=== PATIENT | female | born 1980 | race Caucasian/White ===

== ENCOUNTER → 2016-12-09 | Outpatient (CLI) | payer OTHER ==
[~2016-12-09] MED LIST: ALBUTEROL SULF0.5 M1 INH; ANUSOL-HC25 MG RC; CELEXA20 MG PO; CLARITIN10 MG PO; CYCLOBENZAPRINE10 MG PO; DELTASONE10 MG PO; DIFLUCAN150 MG PO; EES400 MG PO; FIORICET 325 MG1 TAB PO; FLEXERIL10 MG PO; FLEXERIL5 MG PO; FLUCONAZOLE100 MG PO; HYDROCODON-ACE1 EACH PO; HYDROCODON-ACETAMINO; HYDROCODONE BIT1 T11 PO; LEVOFLOXACIN500 MG PO; MEDROL DOSEPAK4 MG PO; MOTRIN800 MG PO; MUCINEX DM 30/61 TAB PO; NAPROXEN250 MG PO; NAPROXEN550 MG PO; NO DAILY MEDS; PANTOPRAZOLE SO40 MG PO; PREDNICOT20 MG PO; PREDNISONE10 MG PO; PREDNISONE20 MG PO; PRILOSEC20 MG PO; ROBAXIN750 MG PO; ROBITUSSIN DM 101 OZ PO; TESSALON PERLE100 M1 PO; TRAMADOL HCL50 MG PO; TRIMOX500 MG PO; ULTRAM50 MG PO; VIBRAMYCIN100 MG PO; VICODIN 5/500 505 MG PO; VICODIN ES 7501 TA1 PO; VOLTAREN50 M1 PO; WELLBUTRIN SR150 MG PO; XARELTO15 M1 PO; ZITHROMAX Z PA250 MG PO; ZITHROMAX250 MG PO; ZOFRAN ODT4 MG SL; ZYRTEC10 M1 PO
== END | disposition home or self-care (01) ==
LOC: ORTHO 04:51
DX: S52.602A Unspecified fracture of lower end of left ulna, initial encounter for closed fracture (principal); X58.XXXA Exposure to other specified factors, initial encounter; Y93.89 Activity, other specified; Y92.89 Other specified places as the place of occurrence of the external cause; Y99.8 Other external cause status

== ENCOUNTER → 2016-12-10 | Outpatient (CLI) | payer OTHER | END | disposition home or self-care (01) | LOC: MRI 12-03 10:00 | DX: S06.0X1A Concussion with loss of consciousness of 30 minutes or less, initial encounter (principal); X58.XXXA Exposure to other specified factors, initial encounter; Y93.89 Activity, other specified; Y92.89 Other specified places as the place of occurrence of the external cause; Y99.8 Other external cause status ==

== ENCOUNTER → 2016-12-23 | Outpatient (CLI) | payer OTHER | END | disposition home or self-care (01) | LOC: ORTHO 01:53 | DX: S52.602D Unspecified fracture of lower end of left ulna, subsequent encounter for closed fracture with routine healing (principal); X58.XXXD Exposure to other specified factors, subsequent encounter ==

== ENCOUNTER → 2017-01-13 | Outpatient (CLI) | payer OTHER | END | disposition home or self-care (01) | LOC: CANPRECLI → ORTHO 00:16 | DX: S52.602D Unspecified fracture of lower end of left ulna, subsequent encounter for closed fracture with routine healing (principal); X58.XXXD Exposure to other specified factors, subsequent encounter ==

== ENCOUNTER → 2017-01-24 | Outpatient (CLI) | payer OTHER | END | disposition home or self-care (01) | LOC: ORTHO 03:49 | DX: S52.602A Unspecified fracture of lower end of left ulna, initial encounter for closed fracture (principal); X58.XXXA Exposure to other specified factors, initial encounter; Y93.89 Activity, other specified; Y92.89 Other specified places as the place of occurrence of the external cause; Y99.8 Other external cause status ==

== ENCOUNTER → 2017-02-17 | Outpatient (CLI) | payer OTHER | END | disposition home or self-care (01) | LOC: ORTHO 01:58 | DX: S52.602D Unspecified fracture of lower end of left ulna, subsequent encounter for closed fracture with routine healing (principal); X58.XXXD Exposure to other specified factors, subsequent encounter ==

== ENCOUNTER 2017-06-06 16:02 | Emergency (ER) | payer OTHER ==
[~2017-06-06] VITALS: Ht 177.8 cm; Wt 108.9 kg
[2017-06-06 23:11] LABS: BASO # 0.1 10*3/uL (0.0-0.1); BASO % 0.7 % (0.0-1.0); EOS # 0.2 10*3/uL (0.0-0.4); EOS % 1.7 % (1.0-4.0); HEMATOCRIT 38.2 % (37.0-47.0); LYMPH # 3.6 10*3/uL (1.3-4.4); LYMPH % 29.2 % (27.0-41.0); MEAN CELL VOLUME 91.8 fl (81.0-99.0); MEAN CORPUSCULAR HGB 31.3 pg (27.0-31.0); MEAN PLATELET VOLUME 10.4 fl (9.6-12.3); MONO # 0.9 10*3/uL (0.1-1.0); MONO % 7.7 % (3.0-9.0); NEUT # 7.3 10*3/uL (2.3-7.9); NEUT % 60.4 % (47.0-73.0); PLATELET COUNT AUTOMATED 269 10*3/uL (130-400); RED BLOOD COUNT 4.16 10*6/uL (4.10-5.10); RED CELL DISTRI WIDTH 12.8 % (0-14.5); WHITE BLOOD COUNT 12.2 10*3/uL (4.8-10.8)
[2017-06-06 23:26] LABS: ALBUMIN 3.3 gm/dl (3.1-4.5); ALKALINE PHOSPHATASE 91 U/L (45-117); BUN 15 mg/dl (7-24); CHLORIDE 109 mmol/L (98-107); CREATININE 0.88 mg/dL (0.55-1.02); POTASSIUM 3.4 mmol/L (3.5-5.1); SGOT/AST 19 IU/L (3-35); SGPT/ALT 28 U/L (12-78); SODIUM 142 mmol/L (136-145); TOTAL PROTEIN 6.8 gm/dL (6.4-8.2)
[2017-06-07 01:03] VITALS: BP 125/67
[2017-06-07] MEDS ORDERED: ZITHROMAX250 MG PO (01:08)
[2017-06-07] MEDS ORDERED: MEDROL DOSEPAK4 MG PO (01:08)
[2017-06-07 01:26] LABS: BILIRUBIN NEGATIVE (NEGATIVE); BLOOD NEGATIVE (NEGATIVE); CLARITY SL CLOUDY (CLEAR); COLOR YELLOW (YELLOW); GLUCOSE NEGATIVE (NEGATIVE); KETONE NEGATIVE (NEGATIVE); LEUKO ESTERASE NEGATIVE (NEGATIVE); NITRITE NEGATIVE (NEGATIVE); PH 5.5 (5.0-9.0); SPECIFIC GRAVITY >= 1.030 (1.005-1.030); UROBILINOGEN 0.2 E.U./dl (0.2-1.0)
[2017-06-07 01:36] LABS: URINE AMPHETAMINES < 1000 (1000ng/ml); URINE BARBITURATES < 200 (200ng/ml); URINE BENZODIAZEPINES < 200 (200ng/ml); URINE CANNABINOIDS (THC) < 50 (50ng/ml); URINE COCAINE < 300 (300ng/ml); URINE METHADONE < 300 (300ng/ml); URINE OPIATES > 300 (300ng/ml)
[2017-06-07 01:37] LABS: URINE PHENCYCLIDINE < 25 (25ng/ml)
[2017-06-07 01:39] LABS: EPITHELIAL CELLS 45-50
[2017-06-07 01:40] LABS: BACTERIA 1+; WBC 0-2 wbc/hpf (0-5)
[2017-06-08] MEDS ORDERED: ALBUTEROL2.5 MG/0.5 INH (20:38)
[2017-06-08] MEDS ORDERED: TESSALON PERLE100 M1 PO ×2 (20:38→20:40)
== END 2017-06-07 02:04 | disposition home or self-care (01) ==
LOC: ED 16:02
PROVIDERS: Nurse Practitioner Family
DX: J06.9 Acute upper respiratory infection, unspecified (principal); F17.200 Nicotine dependence, unspecified, uncomplicated; E66.9 Obesity, unspecified; G89.29 Other chronic pain; M54.5 Low back pain; Z90.49 Acquired absence of other specified parts of digestive tract; Z86.718 Personal history of other venous thrombosis and embolism; Z68.39 Body mass index [BMI] 39.0-39.9, adult; Z98.890 Other specified postprocedural states; Z79.899 Other long term (current) drug therapy

== ENCOUNTER 2017-06-08 17:02 | Emergency (ER) | payer OTHER ==
[~2017-06-08] VITALS: Ht 177.8 cm
[2017-06-08 18:43] VITALS: BP 130/63
[2017-06-08 19:19] LABS: BASO # 0.1 10*3/uL (0.0-0.1); BASO % 0.6 % (0.0-1.0); EOS # 0.1 10*3/uL (0.0-0.4); EOS % 0.9 % (1.0-4.0); HEMOGLOBIN 13.4 g/dl (12.0-16.0); LYMPH % 33.9 % (27.0-41.0); MEAN CELL VOLUME 92.4 fl (81.0-99.0); MEAN CORPUSCULAR HGB 31.8 pg (27.0-31.0); MEAN CORPUSCULAR HGB CONC 34.4 g/dl (33.0-37.0); MEAN PLATELET VOLUME 10.6 fl (9.6-12.3); MONO # 1.4 10*3/uL (0.1-1.0); MONO % 16.2 % (3.0-9.0); NEUT # 4.2 10*3/uL (2.3-7.9); NEUT % 48.2 % (47.0-73.0); PLATELET COUNT AUTOMATED 249 10*3/uL (130-400); RED BLOOD COUNT 4.22 10*6/uL (4.10-5.10); RED CELL DISTRI WIDTH 12.7 % (0-14.5); WHITE BLOOD COUNT 8.7 10*3/uL (4.8-10.8)
[2017-06-08 19:35] LABS: ALBUMIN 3.2 gm/dl (3.1-4.5); ALKALINE PHOSPHATASE 90 U/L (45-117); BUN 11 mg/dl (7-24); CHLORIDE 109 mmol/L (98-107); CREATININE 0.79 mg/dL (0.55-1.02); POTASSIUM 4.2 mmol/L (3.5-5.1); SGOT/AST 16 IU/L (3-35); SGPT/ALT 26 U/L (12-78); SODIUM 142 mmol/L (136-145); TOTAL PROTEIN 6.6 gm/dL (6.4-8.2)
[2017-06-08] MEDS ORDERED: ALBUTEROL2.5 MG/0.5 INH (20:38)
[2017-06-08] MEDS ORDERED: TESSALON PERLE100 M1 PO ×2 (20:38→20:40)
== END 2017-06-08 20:49 | disposition home or self-care (01) ==
LOC: ED 17:02
PROVIDERS: Physician Assistant
DX: J18.0 Bronchopneumonia, unspecified organism (principal)

== ENCOUNTER 2018-10-07 14:09 | Emergency (ER) | payer OTHER ==
[~2018-10-07] VITALS: Ht 170.1 cm; Wt 102.1 kg
--- NOTE | ~2018-10-07 | EKG ---
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
[~2018-10-07 14:09] MED LIST changes: +ALBUTEROL2.5 MG/0.5 INH
[2018-10-07 14:36] VITALS: BP 105/50
[2018-10-07 15:11] LABS: BASO # 0.1 10*3/uL (0.0-0.1); EOS # 0.2 10*3/uL (0.0-0.4); EOS % 1.6 % (1.0-4.0); HEMATOCRIT 40.5 % (37.0-47.0); HEMOGLOBIN 13.3 g/dl (12.0-16.0); LYMPH # 3.5 10*3/uL (1.3-4.4); LYMPH % 37.8 % (27.0-41.0); MEAN CELL VOLUME 94.4 fl (81.0-99.0); MEAN CORPUSCULAR HGB CONC 32.8 g/dl (33.0-37.0); MEAN PLATELET VOLUME 10.4 fl (9.6-12.3); MONO # 0.8 10*3/uL (0.1-1.0); NEUT # 4.7 10*3/uL (2.3-7.9); NEUT % 50.4 % (47.0-73.0); PLATELET COUNT AUTOMATED 253 10*3/uL (130-400); RED BLOOD COUNT 4.29 10*6/uL (4.10-5.10); RED CELL DISTRI WIDTH 12.8 % (0-14.5); WHITE BLOOD COUNT 9.3 10*3/uL (4.8-10.8)
[2018-10-07 15:19] LABS: INTERNATIONAL NORM RATIO 0.9 (2.0-3.5)
[2018-10-07 15:29] LABS: ALBUMIN 3.5 gm/dl (3.1-4.5); ALKALINE PHOSPHATASE 79 U/L (45-117); BUN 16 mg/dl (7-24); CHLORIDE 108 mmol/L (98-107); CREATININE 0.87 mg/dL (0.55-1.02); POTASSIUM 3.7 mmol/L (3.5-5.1); SGOT/AST 16 IU/L (3-35); SGPT/ALT 26 U/L (12-78); SODIUM 141 mmol/L (136-145); TOTAL PROTEIN 6.6 gm/dL (6.4-8.2)
[2018-10-07 15:35] LABS: TROPONIN I < 0.015 ng/ml (<0.045)
[2018-10-07] MEDS ORDERED: HYDROXYZINE HCL25 MG PO (17:12)
== END 2018-10-07 17:21 | disposition home or self-care (01) ==
LOC: ED 14:09
PROVIDERS: Physician Assistant
DX: F41.9 Anxiety disorder, unspecified (principal); R07.9 Chest pain, unspecified; M79.89 Other specified soft tissue disorders; I50.9 Heart failure, unspecified

== ENCOUNTER 2020-01-26 12:33 | Inpatient (IN) | payer SELFPAY ==
[~2020-01-26] VITALS: Ht 177.8 cm; Wt 129.3 kg
[~2020-01-26 12:33] MED LIST changes: +HYDROXYZINE HCL25 MG PO
[2020-01-26 12:47] VITALS: BP 124/48
[2020-01-26 13:34] LABS: BASO # 0.1 10*3/uL (0.0-0.1); BASO % 0.9 % (0.0-1.0); EOS # 0.1 10*3/uL (0.0-0.4); HEMATOCRIT 43.6 % (37.0-47.0); LYMPH # 3.2 10*3/uL (1.3-4.4); LYMPH % 32.4 % (27.0-41.0); MEAN CELL VOLUME 90.1 fl (81.0-99.0); MEAN CORPUSCULAR HGB 31.2 pg (27.0-31.0); MEAN CORPUSCULAR HGB CONC 34.6 g/dl (33.0-37.0); MEAN PLATELET VOLUME 10.4 fl (9.6-12.3); MONO # 0.9 10*3/uL (0.1-1.0); MONO % 9.6 % (3.0-9.0); NEUT # 5.5 10*3/uL (2.3-7.9); NEUT % 55.9 % (47.0-73.0); PLATELET COUNT AUTOMATED 327 10*3/uL (130-400); RED BLOOD COUNT 4.84 10*6/uL (4.10-5.10); RED CELL DISTRI WIDTH 12.5 % (0-14.5); WHITE BLOOD COUNT 9.8 10*3/uL (4.8-10.8)
[2020-01-26 13:45] LABS: ACT PARTIAL THROMBO TIME 27.1 SECONDS (20.0-32.1)
[2020-01-26 13:55] LABS: ALBUMIN 3.7 gm/dl (3.1-4.5); ALKALINE PHOSPHATASE 72 U/L (45-117); BUN 13 mg/dl (7-24); CHLORIDE 107 mmol/L (98-107); LIPASE 92 U/L (73-393); POTASSIUM 3.8 mmol/L (3.5-5.1); SGOT/AST 21 IU/L (3-35); SGPT/ALT 32 U/L (12-78); SODIUM 138 mmol/L (136-145); TOTAL PROTEIN 7.2 gm/dL (6.4-8.2)
[2020-01-26 13:59] LABS: TROPONIN I < 0.015 ng/ml (<0.045)
[2020-01-26 14:56] LABS: BILIRUBIN NEGATIVE (NEGATIVE); BLOOD NEGATIVE (NEGATIVE); CLARITY CLEAR (CLEAR); COLOR YELLOW (YELLOW); GLUCOSE NEGATIVE (NEGATIVE); KETONE NEGATIVE (NEGATIVE); LEUKO ESTERASE NEGATIVE (NEGATIVE); NITRITE NEGATIVE (NEGATIVE); UROBILINOGEN 0.2 E.U./dl (0.2-1.0)
[2020-01-26 14:58] LABS: BACTERIA 2+; MUCOUS 2+; RBC 0-2 rbc/hpf (0-2)
--- NOTE | 2020-01-26 16:42 | NUR ---
PT RESTING ON BED COMFORTABLY. STATES MEDICATION WAS EFFECTIVE.
--- NOTE | 2020-01-26 17:31 | NUR ---
PT CALLED. VERBAL PERMISSION GIVEN TO GIVE INFORMATION. UPDATE GIVEN.
[2020-01-26 18:50] VITALS: BP 111/60
--- NOTE | 2020-01-26 18:50 | NUR ---
Time: 1849 A 39 year old FEMALE admitted to 4E under services of ONDINA SMYTH DO. Pt. arrived via stretcher from ER. Chief complaint: ABDOMINAL PAIN. FANTASMA JANSEN
--- NOTE | 2020-01-26 19:00 | NUR ---
ASSUMED CARE FOR THIS PT AT THIS TIME. C/O MID EPIGASTRIC PAIN 12/23 BUT DENIES NEED FOR PAIN MED AT THIS TIME. PT TEACHING GIVEN ON PROTONIX. ICE CHIPS GIVEN TO PT. CALL LIGHT IN REACH.
--- NOTE | 2020-01-26 19:30 | NUR ---
DR. SEAY NOTIFIED OF PT'S NPO STATUS AND PO PROTONIX ORDERED. OK TO CHANGE TO IV FORM.
--- NOTE | 2020-01-26 19:38 | NUR ---
DR. HENRY AWARE OF CONSULT
[2020-01-26 20:00] VITALS: BP 110/61
--- NOTE | 2020-01-26 22:28 | NUR ---
DR. SEAY PHONED RE PT STATES SHE DOES NOT LIKE THE WAY MORPHINE MAKES HER FEEL AND SHE WAS GIVEN DILAUDID IN THE ER. TO REVIEW HER CHART.
--- NOTE | 2020-01-26 23:02 | NUR ---
24 HR chart check completed.
--- NOTE | 2020-01-26 23:56 | NUR ---
PT MEDICATED W/MORPHINE IVP FOR C/O MID EPIGASTRIC PAIN 12/23. PT C/O CHEST TIGHTNESS. PT ANXIOUS RE NEW IV START D/T PREVIOUS IV INFILTRATED. PT STATES NEW IV IS BURNING WHEN FLUSHED. NO REDNESS OR SWELLING NOTED. WILL CONTINUE TO MONITOR.
[2020-01-27] VITALS: BP 102/56
--- NOTE | 2020-01-27 01:00 | NUR ---
PT RESTING QUIETLY IN BED. NO S/S OF DISTRESS NOTED. PRN MORPHINE EFFECTIVE FOR PAIN RELIEF.
[2020-01-27 06:13] LABS: BASO # 0.1 10*3/uL (0.0-0.1); BASO % 0.7 % (0.0-1.0); EOS # 0.1 10*3/uL (0.0-0.4); EOS % 1.3 % (1.0-4.0); HEMATOCRIT 38.9 % (37.0-47.0); LYMPH # 3.9 10*3/uL (1.3-4.4); LYMPH % 46.9 % (27.0-41.0); MEAN CELL VOLUME 92.2 fl (81.0-99.0); MEAN CORPUSCULAR HGB 31.5 pg (27.0-31.0); MEAN CORPUSCULAR HGB CONC 34.2 g/dl (33.0-37.0); MEAN PLATELET VOLUME 10.7 fl (9.6-12.3); MONO # 0.9 10*3/uL (0.1-1.0); MONO % 11.3 % (3.0-9.0); NEUT # 3.3 10*3/uL (2.3-7.9); NEUT % 39.4 % (47.0-73.0); PLATELET COUNT AUTOMATED 290 10*3/uL (130-400); RED BLOOD COUNT 4.22 10*6/uL (4.10-5.10); RED CELL DISTRI WIDTH 12.6 % (0-14.5); WHITE BLOOD COUNT 8.3 10*3/uL (4.8-10.8)
[2020-01-27 06:45] LABS: ALBUMIN 3.1 gm/dl (3.1-4.5); BUN 12 mg/dl (7-24); CHLORIDE 108 mmol/L (98-107); CHOLESTEROL 181 mg/dL (<200); CREATININE 0.77 mg/dL (0.55-1.02); POTASSIUM 3.8 mmol/L (3.5-5.1); SGOT/AST 16 IU/L (3-35); SGPT/ALT 26 U/L (12-78); SODIUM 140 mmol/L (136-145)
[2020-01-27 06:52] LABS: ALKALINE PHOSPHATASE 60 U/L (45-117); FREE T4 1.02 ng/dl (0.76-1.46); HDL CHOLESTEROL 34 mg/dl (40-60); LDL CHOLESTEROL 120 mg/dL (9-159); TRIGLYCERIDES 134 mg/dl (<150); VLDL CHOLESTEROL 27 mg/dL (6-40)
[2020-01-27 08:00] VITALS: BP 128/58
[2020-01-27 08:01] LABS: VITAMIN D, 25-HYDROXY 35.2 ng/mL (30-100)
--- NOTE | 2020-01-27 08:12 | NUR ---
PT GIVEN MORPHINE AT THIS TIME VIA IV PUSH FOR C/O PAIN TO ABDOMEN/MID EPIGASTRIC PAIN. PT DESCRIBES PAIN SHARP. WILL MONITOR FOR EFFECTIVENESS. PT LYING IN BED. IV FLUIDS INFUSING PER ORDERS. CALL LIGHT IN REACH.
--- NOTE | 2020-01-27 09:00 | NUR ---
NOTIFIED PT THAT DIET ORDER HAS BEEN CHANGED FROM NPO TO REGULAR. WATER PROVIDED TO PATIENT AT THIS TIME.
--- NOTE | 2020-01-27 09:12 | NUR ---
PT STATES THAT MORPHINE IS EFFECTIVE.
--- NOTE | 2020-01-27 11:11 | NUR ---
[employer] Administrator in to talk to patient. Patient states lives at HOME with . There are 10 steps in the home. 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 DENIES SHE WILL HAVE NEEDS ON DISCHARGE. PLAN IS TO RETURN HOME WITH WHEN MEDICALLY STABLE. PT STATES SHE HAS NOT INSURANCE AT THIS TIME. STATES SHE TALKED TO CARMELA FROM [facility] YESTERDAY. WILL CONTINUE TO FOLLOW. STATES HER WILL TAKE HER HOME ON DISCHARGE.. SHOSHANA BROTHERS
[2020-01-27 12:00] VITALS: BP 129/49
--- NOTE | 2020-01-27 13:00 | NUR ---
PT GIVEN MORPHINE AT THIS TIME FOR C/O ABDOMINAL PAIN. PT IV SITE TO RIGHT ANTECUBITAL PATENT. DRESSING C/D/I. WILL MONITOR FOR EFFECTIVENESS. CALL LIGHT IN REACH.
[2020-01-27 13:30] VITALS: BP 137/89
--- NOTE | 2020-01-27 14:00 | NUR ---
MORPHINE EFFECTIVE PER PT.
[2020-01-27 16:00] VITALS: BP 107/58
--- NOTE | 2020-01-27 16:00 | NUR ---
PT UPDATED ON PLAN OF CARE AND PLANS FOR THE DOCTORS TO KEEP HER ANOTHER NIGHT.
--- NOTE | 2020-01-27 18:00 | NUR ---
Hep Lock discontinued to right antecubital due to site dislodging. Site asymptomatic. Pressure applied. Sterile dressing applied. JOHN GOTTI
--- NOTE | 2020-01-27 18:10 | NUR ---
IV started right hand with #22 protective cath after 0 attempts. Site prepped with Chloroprep. Sterile dressing applied. Patient tolerated procedure well. IV site saline locked at this time. JOHN GOTTI
--- NOTE | 2020-01-27 18:12 | NUR ---
pt given morphine 2 mg at this time due to abdominal pain. will monitor for effectiveness. call light in reach.
--- NOTE | 2020-01-27 18:55 | NUR ---
PT STATES THAT MORPHINE IS EFFECTIVE AT THIS TIME.
--- NOTE | 2020-01-27 19:00 | NUR ---
ASSUMED CARE FOR THIS PT AT THIS TIME. PT SITTING UP IN BED EATNG POPSICLES. PT TEACHING GIVEN ON FOODS TO AVOID W/GASTRITIS. PT ENCOURAGED TO DRINK MILK AND COLD DRINKS/FOODS. BS HYPO X4. PT STATES SHE NO LONGER HAS PAIN, SHE HAS MID EPIGASTRIC BURNING 2/10. CALL LIGHT IN REACH.
[2020-01-27 20:00] VITALS: BP 109/62
[2020-01-28] VITALS: BP 113/47
--- NOTE | 2020-01-28 00:14 | NUR ---
PT MEDICATED W/MORPHINE IVP FOR C/O MID EPIGASTRIC BURNING. 02/22
--- NOTE | 2020-01-28 01:00 | NUR ---
PT RESTING QUIETLY IN BED. NO S/S OF DISTRESS NOTED.
[2020-01-28 06:01] LABS: BASO # 0.1 10*3/uL (0.0-0.1); BASO % 1.3 % (0.0-1.0); EOS # 0.1 10*3/uL (0.0-0.4); EOS % 1.6 % (1.0-4.0); LYMPH # 4.4 10*3/uL (1.3-4.4); LYMPH % 52.9 % (27.0-41.0); MEAN CELL VOLUME 91.1 fl (81.0-99.0); MEAN CORPUSCULAR HGB 30.5 pg (27.0-31.0); MEAN CORPUSCULAR HGB CONC 33.4 g/dl (33.0-37.0); MEAN PLATELET VOLUME 11.2 fl (9.6-12.3); MONO % 12.2 % (3.0-9.0); NEUT # 2.7 10*3/uL (2.3-7.9); NEUT % 31.9 % (47.0-73.0); PLATELET COUNT AUTOMATED 294 10*3/uL (130-400); RED BLOOD COUNT 4.17 10*6/uL (4.10-5.10); RED CELL DISTRI WIDTH 12.6 % (0-14.5); WHITE BLOOD COUNT 8.4 10*3/uL (4.8-10.8)
[2020-01-28 06:07] LABS: ALKALINE PHOSPHATASE 72 U/L (45-117); BUN 16 mg/dl (7-24); CHLORIDE 110 mmol/L (98-107); POTASSIUM 4.3 mmol/L (3.5-5.1); SGOT/AST 19 IU/L (3-35); SGPT/ALT 25 U/L (12-78); SODIUM 140 mmol/L (136-145); TOTAL PROTEIN 5.7 gm/dL (6.4-8.2)
--- NOTE | 2020-01-28 07:30 | NUR ---
PT SITTING UP IN BED, ALERT ORIENTED AND PLEASANT MOOD WITH NO COMPLAINTS VOICED AT THIS TIME. RESPIRATIONS EASY AND UNLABORED ON ROOM AIR. PT ASSESSMENT COMPLETE. VITALS WNL. SAFETY MEASURES IN PLACE. CALL LIGHT IN REACH.
[2020-01-28 08:00] VITALS: BP 122/68
--- NOTE | 2020-01-28 09:59 | NUR ---
PT STATES THAT SHE HAD ONE EPISODE OF EMESIS AFTER EATING BREAKFAST. ZOFRAN VIA IVP GIVEN AT THIS TIME. WILL MONITOR FOR EFFECTIVENESS. CALL LIGHT IN REACH.
--- NOTE | 2020-01-28 10:59 | NUR ---
ZOFRAN EFFECTIVE PER PT.
--- NOTE | 2020-01-28 11:59 | NUR ---
Nutritional Support Services Note: Appetite is good for meals. She is eating 100% of regular diet. Ht.5' Wt.285#. Dx of gastritis.No nausea or vomiting noted. Will follow if needed. No nutiriton intervention needed at this time. Will follow. Ro Francis Rdn Ld
[2020-01-28 12:00] VITALS: BP 101/47
[2020-01-28] MEDS ORDERED: PROTONIX40 MG PO (13:09)
[2020-01-28] MEDS ORDERED: Carafate1 GM PO (13:09)
--- NOTE | 2020-01-28 14:15 | NUR ---
Discharge instructions reviewed with patient/family. Patient receptive and verbalizes understanding. Follow-up care arranged. Written instructions given to patient/family. JOHN GOTTI
== END 2020-01-28 14:15 | disposition home or self-care (01) | DRG 392 ==
LOC: ED 12:33 → EDHOLD 17:33 → 4E 17:33
PROVIDERS: Emergency Medicine; Internal Medicine; Nurse Practitioner Family; ADMIT Family Medicine
DX: K29.00 Acute gastritis without bleeding (principal); Z68.41 Body mass index [BMI] 40.0-44.9, adult; E83.41 Hypermagnesemia; F17.210 Nicotine dependence, cigarettes, uncomplicated; M54.9 Dorsalgia, unspecified; F41.9 Anxiety disorder, unspecified; E66.9 Obesity, unspecified; G89.29 Other chronic pain; R00.0 Tachycardia, unspecified; Z71.6 Tobacco abuse counseling; Z86.718 Personal history of other venous thrombosis and embolism; Z80.1 Family history of malignant neoplasm of trachea, bronchus and lung; Z79.899 Other long term (current) drug therapy

== ENCOUNTER → 2020-02-09 | Outpatient (CLI) | payer SELFPAY ==
[~2020-02-09] MED LIST changes: +Carafate1 GM PO; +PROTONIX40 MG PO
== END | disposition home or self-care (01) ==
LOC: NM 06:36
DX: K29.00 Acute gastritis without bleeding (principal); R10.84 Generalized abdominal pain

== ENCOUNTER 2022-05-03 04:41 | Emergency (ER) | payer OTHER ==
[~2022-05-03] VITALS: Ht 172.7 cm; Wt 90.7 kg
[2022-05-03 05:03] VITALS: BP 112/62
[2022-05-03 05:56] LABS: ALKALINE PHOSPHATASE 82 U/L (45-117); BUN 12 mg/dl (7-24); CHLORIDE 105 mmol/L (98-107); CREATININE 0.84 mg/dL (0.55-1.02); POTASSIUM 3.8 mmol/L (3.5-5.1); SGOT/AST 21 IU/L (3-35); SGPT/ALT 31 U/L (12-78); SODIUM 138 mmol/L (136-145); TOTAL PROTEIN 6.9 gm/dL (6.4-8.2)
[2022-05-03 06:07] LABS: BASO % 0.5 % (0.0-1.0); HEMATOCRIT 41.2 % (37.0-47.0); LYMPH # 1.5 10*3/uL (1.3-4.4); LYMPH % 24.3 % (27.0-41.0); MEAN CELL VOLUME 90.2 fl (81.0-99.0); MEAN CORPUSCULAR HGB 30.6 pg (27.0-31.0); MONO # 0.9 10*3/uL (0.1-1.0); MONO % 14.3 % (3.0-9.0); NEUT # 3.8 10*3/uL (2.3-7.9); NEUT % 59.9 % (47.0-73.0); PLATELET COUNT AUTOMATED 224 10*3/uL (130-400); RED BLOOD COUNT 4.57 10*6/uL (4.10-5.10); RED CELL DISTRI WIDTH 12.8 % (0-14.5); WHITE BLOOD COUNT 6.3 10*3/uL (4.8-10.8)
== END 2022-05-03 07:35 | disposition home or self-care (01) ==
LOC: ED 04:41
PROVIDERS: Emergency Medicine
DX: U07.1 COVID-19 (principal); R11.2 Nausea with vomiting, unspecified; R00.0 Tachycardia, unspecified; F17.200 Nicotine dependence, unspecified, uncomplicated; Z79.899 Other long term (current) drug therapy; Z90.49 Acquired absence of other specified parts of digestive tract; Z98.890 Other specified postprocedural states; Z87.42 Personal history of other diseases of the female genital tract

== ENCOUNTER → 2022-05-14 | Outpatient (CLI) | payer OTHER | END | disposition home or self-care (01) | LOC: CARD 14:42 | PROVIDERS: ATTEND Physician Assistant | DX: I07.1 Rheumatic tricuspid insufficiency (principal) ==

== ENCOUNTER → 2023-08-21 | Outpatient (CLI) | payer OTHER | END | disposition home or self-care (01) | LOC: US 07:54 | PROVIDERS: ATTEND Physician Assistant | DX: K76.0 Fatty (change of) liver, not elsewhere classified (principal) ==

== ENCOUNTER 2024-01-13 09:26 | Emergency (ER) | payer OTHER ==
[~2024-01-13] VITALS: Ht 175.2 cm; Wt 117.9 kg
[2024-01-13 09:36] VITALS: BP 121/63
[2024-01-13] MEDS ORDERED: FUROSEMIDE40 MG PO (09:37)
[2024-01-13] MEDS ORDERED: HYDROCODONE-AC1 EAC1 PO (09:38)
[2024-01-13] MEDS ORDERED: PREGABALIN75 MG PO (09:38)
[2024-01-13] MEDS ORDERED: MIRTAZAPINE15 M2 PO (09:38)
[2024-01-13] MEDS ORDERED: HYDROXYZINE PAM25 M1 PO (09:38)
[2024-01-13] MEDS ORDERED: DEXTROAMPH SACC20 M1 PO (09:39)
[2024-01-13] MEDS ORDERED: POTASSIUM CHLO20 ME4 PO (09:39)
[2024-01-13] MEDS ORDERED: SODIUM CHLORIDE 0.9% 1,000 ML IV ONE (09:50)
[2024-01-13] MEDS ORDERED: Ondansetron Hydrochloride 4 MG/2 ML VIAL IV ONE (09:50)
[2024-01-13] MEDS ORDERED: Meclizine Hydrochloride 25 MG TAB PO ONE (09:50)
[2024-01-13 09:59] LABS: BASO # 0.1 10*3/uL (0.0-0.1); BASO % 0.9 % (0.0-1.0); EOS # 0.1 10*3/uL (0.0-0.4); EOS % 0.7 % (1.0-4.0); HEMATOCRIT 39.8 % (37.0-47.0); LYMPH # 1.8 10*3/uL (1.3-4.4); LYMPH % 26.4 % (27.0-41.0); MEAN CELL VOLUME 92.6 fl (81.0-99.0); MEAN CORPUSCULAR HGB 30.9 pg (27.0-31.0); MEAN CORPUSCULAR HGB CONC 33.4 g/dl (33.0-37.0); MEAN PLATELET VOLUME 10.4 fl (9.6-12.3); MONO # 0.6 10*3/uL (0.1-1.0); MONO % 8.6 % (3.0-9.0); NEUT # 4.3 10*3/uL (2.3-7.9); NEUT % 63.3 % (47.0-73.0); PLATELET COUNT AUTOMATED 253 10*3/uL (130-400); RED CELL DISTRI WIDTH 12.7 % (0-14.5); WHITE BLOOD COUNT 6.8 10*3/uL (4.8-10.8)
[2024-01-13 10:20] LABS: ALKALINE PHOSPHATASE 68 U/L (46-116); BUN 12 mg/dl (9-23); CHLORIDE 107 mmol/L (98-107); LIPASE 38 U/L (12-53); POTASSIUM 3.9 mmol/L (3.4-5.1); SGPT/ALT 15 U/L (5-49); TOTAL PROTEIN 6.4 gm/dL (6.0-8.0)
[2024-01-13 11:38] LABS: BILIRUBIN Negative (Negative); BLOOD Negative (Negative); CLARITY Clear (Clear); COLOR Yellow (Yellow); GLUCOSE Negative (Negative); KETONE Negative (Negative); LEUKO ESTERASE Trace (Negative); NITRITE Negative (Negative); SPECIFIC GRAVITY 1.025 (1.001-1.030)
[2024-01-13 11:45] LABS: URINE AMPHETAMINES Negative (1000ng/ml); URINE BARBITURATES Negative (200ng/ml); URINE BENZODIAZEPINES Negative (200ng/ml); URINE CANNABINOIDS (THC) Negative (50ng/ml); URINE COCAINE Negative (300ng/ml); URINE METHADONE Negative (300ng/ml); URINE OPIATES Positive (300ng/ml); URINE PHENCYCLIDINE Negative (25ng/ml)
[2024-01-13 11:56] LABS: PH 8.5 (4.5-8.0)
[2024-01-13 11:59] LABS: BACTERIA TRACE; RBC 0-2 rbc/hpf (0-2)
[2024-01-13] MEDS ORDERED: ANTIVERT25 M2 PO (12:12)
== END 2024-01-13 12:55 | disposition home or self-care (01) ==
LOC: ED 09:26
PROVIDERS: Internal Medicine
DX: H81.10 Benign paroxysmal vertigo, unspecified ear (principal); F41.9 Anxiety disorder, unspecified; R11.2 Nausea with vomiting, unspecified; Z90.49 Acquired absence of other specified parts of digestive tract; Z98.890 Other specified postprocedural states; F17.200 Nicotine dependence, unspecified, uncomplicated

== ENCOUNTER → 2025-02-25 | Outpatient (CLI) | payer BC ==
[~2025-02-25] MED LIST changes: +ANTIVERT25 M2 PO; +DEXTROAMPH SACC20 M1 PO; +FUROSEMIDE40 MG PO; +HYDROCODONE-AC1 EAC1 PO; +HYDROXYZINE PAM25 M1 PO; +IOHEXOL 300 MG/ML 100 ML VIAL IV ONE; +MIRTAZAPINE15 M2 PO; +POTASSIUM CHLO20 ME4 PO; +PREGABALIN75 MG PO
== END | disposition home or self-care (01) ==
LOC: CT 14:20
PROVIDERS: ATTEND Physician Assistant
DX: C43.9 Malignant melanoma of skin, unspecified (principal); H57.89 Other specified disorders of eye and adnexa

== ENCOUNTER 2025-06-17 14:26 | Emergency (ER) | payer BC ==
[~2025-06-17] VITALS: Ht 177.8 cm; Wt 99.8 kg
[~2025-06-17 14:26] MED LIST changes: -IOHEXOL 300 MG/ML 100 ML VIAL IV ONE
[2025-06-17 14:35] VITALS: BP 132/88
[2025-06-17] MEDS ORDERED: SODIUM CHLORIDE 0.9% 500 ML IV ONE (15:35)
[2025-06-17 15:55] LABS: BASO # 0.1 10*3/uL (0.0-0.1); BASO % 1.0 % (0.0-1.0); EOS # 0.1 10*3/uL (0.0-0.4); EOS % 0.7 % (1.0-4.0); MEAN CELL VOLUME 98.1 fl (81.0-99.0); MEAN CORPUSCULAR HGB 32.9 pg (27.0-31.0); MEAN PLATELET VOLUME 10.5 fl (9.6-12.3); MONO # 0.8 10*3/uL (0.1-1.0); MONO % 10.6 % (3.0-9.0); NEUT # 4.5 10*3/uL (2.3-7.9); NEUT % 61.0 % (47.0-73.0); NUCLEATED RED BLOOD CELL 0.0 % (0.0-0.0); NUCLEATED RED BLOOD CELL 0.0 10*3/uL (0.0-0.0); PLATELET COUNT AUTOMATED 255 10*3/uL (130-400); RED CELL DISTRI WIDTH 12.6 % (0-14.5)
[2025-06-17 16:09] LABS: BUN 10 mg/dl (9-23)
== END 2025-06-17 18:08 | disposition home or self-care (01) ==
LOC: ED 14:26
PROVIDERS: Student in an Organized Health Care Education/Training Program
DX: R07.89 Other chest pain (principal); R42 Dizziness and giddiness; Z79.899 Other long term (current) drug therapy; Z90.49 Acquired absence of other specified parts of digestive tract; Z98.890 Other specified postprocedural states; Z87.42 Personal history of other diseases of the female genital tract

== ENCOUNTER 2025-06-23 08:36 | Emergency (ER) | payer OTHER, BC ==
[~2025-06-23] VITALS: Ht 177.8 cm; Wt 98.9 kg
[2025-06-23 08:46] VITALS: BP 148/93
== END 2025-06-23 10:57 | disposition home or self-care (01) ==
LOC: ED 08:36
DX: S60.222A Contusion of left hand, initial encounter (principal); M25.562 Pain in left knee; R07.89 Other chest pain; R51.9 Headache, unspecified; V48.5XXA Car driver injured in noncollision transport accident in traffic accident, initial encounter; Y93.89 Activity, other specified; Y92.410 Unspecified street and highway as the place of occurrence of the external cause; Y99.8 Other external cause status

== ENCOUNTER 2025-08-17 15:15 | Emergency (ER) | payer BC ==
[~2025-08-17] VITALS: Wt 98.9 kg
[2025-08-17 15:49] VITALS: BP 152/71
[2025-08-17] MEDS ORDERED: IOHEXOL 300 MG/ML 100 ML VIAL IV ONE (16:05)
[2025-08-17 16:30] LABS: BASO # 0.1 10*3/uL (0.0-0.1); BASO % 0.9 % (0.0-1.0); EOS # 0.0 10*3/uL (0.0-0.4); EOS % 0.3 % (1.0-4.0); MEAN CELL VOLUME 98.6 fl (81.0-99.0); MEAN CORPUSCULAR HGB 32.9 pg (27.0-31.0); MEAN PLATELET VOLUME 10.4 fl (9.6-12.3); MONO # 1.0 10*3/uL (0.1-1.0); MONO % 9.5 % (3.0-9.0); NEUT # 6.7 10*3/uL (2.3-7.9); NEUT % 66.0 % (47.0-73.0); NUCLEATED RED BLOOD CELL 0.0 % (0.0-0.0); NUCLEATED RED BLOOD CELL 0.0 10*3/uL (0.0-0.0); PLATELET COUNT AUTOMATED 242 10*3/uL (130-400); RED CELL DISTRI WIDTH 12.4 % (0-14.5)
[2025-08-17 16:59] LABS: BUN 15 mg/dl (9-23); SGPT/ALT 11 U/L (5-49)
[2025-08-17 17:12] LABS: ACT PARTIAL THROMBO TIME 24.4 SECONDS (20.0-32.1)
== END 2025-08-17 18:40 | disposition home or self-care (01) ==
LOC: ED 15:15
PROVIDERS: Internal Medicine
DX: N83.202 Unspecified ovarian cyst, left side (principal); R53.83 Other fatigue; R07.89 Other chest pain; F17.200 Nicotine dependence, unspecified, uncomplicated; Z90.49 Acquired absence of other specified parts of digestive tract; Z98.890 Other specified postprocedural states; Z79.899 Other long term (current) drug therapy

== ENCOUNTER → 2025-08-22 | Outpatient (CLI) | payer BC ==
[~2025-08-22] MED LIST changes: +GADOTERATE MEGLUMINE 10 MMOL/20 ML VIAL IV ONE
== END | disposition home or self-care (01) ==
LOC: MRI 15:35
PROVIDERS: ATTEND Obstetrics & Gynecology
DX: N82.3 Fistula of vagina to large intestine (principal)